=== PATIENT | female | born 1990 | race Caucasian/White ===

== ENCOUNTER 2020-07-21 15:58 | Outpatient (REF) | payer MEDICAID, SELFPAY | END 2020-07-21 15:59 | disposition home or self-care (01) | LOC: HO.LAB 15:58 | PROVIDERS: Visit Provider Internal Medicine | DX: Z20.828 Contact with and (suspected) exposure to other viral communicable diseases (principal) | CPT/HCPCS: C9803; U0003 ==

== ENCOUNTER 2020-08-09 10:52 | Outpatient (REF) | payer MEDICAID, SELFPAY | END 2020-08-09 10:53 | disposition home or self-care (01) | LOC: HO.LAB 10:52 | PROVIDERS: Visit Provider Internal Medicine | DX: Z20.822 Contact with and (suspected) exposure to COVID-19 (principal) | CPT/HCPCS: 36415; C9803; U0003 ==

== ENCOUNTER 2022-08-11 07:47 | Outpatient (REF) | payer MEDICAID, SELFPAY ==
--- NOTE | ~2022-08-11 | MM_ITS ---
EXAMINATION: MM DIAGNOSTIC DIGITAL BREAST TOMOSYNTHESIS, LEFT US BREAST TARGETED, LEFT CLINICAL INFORMATION: Skin tag The lifetime risk of breast cancer based on the Tyrer-Cuzick Model is 7.8%. COMPARISON: Mammography: None TECHNIQUE: Digital breast tomosynthesis is performed in both the craniocaudal and mediolateral oblique views along with computer-aided detection (CAD). Synthesized 2D images are generated from the tomosynthesis. Additional left craniocaudal and mediolateral oblique views performed. Targeted left breast ultrasound. FINDINGS: There are scattered areas of fibroglandular density (ACR BI-RADS breast composition Category b). About the upper outer aspect of the left breast, there is a density likely representing superimposition of fibroglandular tissue but which persists to some degree on spot compression views. No other abnormal dominant mass or suspicious grouping of microcalcifications is identified. Recommend 6 month follow-up left breast mammography to ensure stability. Targeted left breast ultrasound to the upper outer aspect did not demonstrate any abnormal cystic or solid mass. No region of abnormal distal sound shadowing was identified. No edematous change within the parenchyma is seen Targeted ultrasound to the areolar was performed for question skin tag. About the nipple, there is a 3 mm exophytic structure from the epidermis. There is a small vascular pedicle present. Results are discussed with the patient at time of visit. MM/MM tomosynthesis diagnostic BI IMPRESSION: 1. Left breast density upper outer aspect for which 6 month follow-up study is recommended. 2. Left nipple skin tag as described. ASSESSMENT: BI-RADS 3: Probably Benign RECOMMENDATION: Diagnostic mammography in 6 months. This patient's information was entered into a reminder system with a target due date for their next mammogram.
== END 2022-08-11 07:48 | disposition home or self-care (01) ==
LOC: HO.MAMMO 07:47
PROVIDERS: Visit Provider Advanced Practice Midwife
DX: Q83.9 Congenital malformation of breast, unspecified (principal)
CPT/HCPCS: 76642; 77062; 77066

== ENCOUNTER 2022-10-20 12:00 | Outpatient (RCR) | payer MEDICAID, SELFPAY | END 2022-10-25 11:29 | disposition home or self-care (01) | LOC: HO.PT 12:00 | PROVIDERS: PCP Nurse Practitioner; Visit Provider Advanced Practice Midwife | DX: N62 Hypertrophy of breast (principal) | CPT/HCPCS: 97110; 97112; 97161; 97530 ==

== ENCOUNTER 2023-04-14 09:51 | Emergency (ER) | payer SELFPAY ==
--- NOTE | ~2023-04-14 | XR_ITS ---
EXAMINATION: XR WRIST, RIGHT XR HAND, RIGHT CLINICAL INFORMATION: Pain COMPARISON: None available. TECHNIQUE: Frontal lateral oblique right hand and navicular view wrist. Total 4 views. FINDINGS: RIGHT WRIST: The bones and soft tissues are normal. No fracture. Alignment is anatomic. Joint spaces are maintained. No erosions or soft tissue calcifications. RIGHT HAND: The bones and soft tissues are normal. No fracture. Alignment is anatomic. Joint spaces are maintained. No erosions or soft tissue calcifications. XR/XR hand wrist RT IMPRESSION: Normal right hand and wrist.
[2023-04-14 09:59] VITALS: BP 141/84; PULSE 86; RESP 18; TEMP 36.5; O2SAT 97; BMI 32.8
--- NOTE | 2023-04-14 10:49 | ED_ITS ---
HPI - URI/Sore Throat General Chief Complaint: Upper Respiratory Symptoms Stated Complaint: R hand pain/ not feeling well Time Seen by Provider: 04/14/23 10:18 Source: patient, RN notes reviewed and old records reviewed Mode of arrival: ambulatory History of Present Illness HPI Narrative: 33-year-old female with no significant past medical history presenting to the ED complaining of right hand/wrist pain, with intermittent swelling and paresthesias x few weeks. Also reports nasal congestion, dry cough, mild headache and subjective fever x couple days. Admits co-worker tested positive for COVID-19 recently. Admits to doing lot of things with her hands, denies weakness, neck/back pain, nausea/vomiting, CP/SOB MD elicited complaint: rhinorrhea and nasal congestion Related Data Allergies Allergy/AdvReac Type Severity Reaction Status Date / Time No Known Allergies Allergy Verified 04/14/23 10:03 Review of Systems Review of Systems: Constitutional: +subj Fever, No Chills ENT/Mouth: No Ear Pain, + Nasal Congestion, No Sinus Pain, No Hoarseness, No so re throat, + Rhinorrhea, No Swallowing Difficulty Cardiovascular: No Chest Pain, No SOB Respiratory: + Cough, No Sputum, No Wheezing Gastrointestinal: No Nausea, No Vomiting, No Diarrhea, No Constipation, No Abdominal pain Genitourinary: No Dysuria, No Urinary Frequency, No Hematuria, No Urinary Incontinence/retention, No Urgency, No Flank Pain Musculoskeletal: + joint pain, No Myalgias, + Joint Swelling Skin: No Skin Lesions, No rash Neuro: No Weakness, No Numbness, + Paresthesias, +FORD Yes all other systems are reviewed and are negative Constitutional: Constitutional: Reports as per [facility] Past Medical History Attestation statement: The following information was validated with the patient. Source: old records reviewed Social History Social History Alcohol intake: current Alcohol intake frequency: a few times a month Smoked in Last 30 Days: No Substance Use Type: Marijuana Advance Directives: No Advance Directives Information Provided: No Physical Exam Vital Signs: Vital Signs: Last Vital Signs Temp 97.7 F 04/14/23 09:59 Pulse 86 04/14/23 09:59 Resp 18 04/14/23 09:59 BP 141/84 H 04/14/23 09:59 Pulse Ox 97 09/23/23 09:59 O2 Del Method Room Air 04/14/23 09:59 BMI result Body Mass Index 32.8 Const: General: cooperative, healthy appearing and no acute distress Orientation/consciousness: patient oriented x3 Limitations: no limitations HEENT: Head: Yes normal to inspection and Yes atraumatic Ears: hearing grossly normal bilaterally, external ears normal, TM's normal bilaterally and mastoids normal General nose exam: Normal external nose present and Nasal discharge present Face and sinus: Yes normal facial exam Throat: Yes posterior oropharynx normal, Yes tonsils normal, Yes uvula midline, No peritonsillar mass, No uvula laterally displaced and No uvular edema Eyes: General: appearance normal, both eyes and all related structures EOM: EOMs intact bilaterally Neck: Neck: Yes normal visual inspection and Yes no meningeal signs Resp: Effort & Inspection: normal respiratory effort, no respiratory distress and no stridor Auscultation: clear to auscultation bilaterally Cardio: Rate: regular rate Heart sounds: S1 normal heart sound present and S2 normal heart sound present Skin: Rashes: no rashes Wounds: no wounds Neuro: General: patient oriented x3, gait normal, tone normal, moves all extremities, no meningeal signs, no focal motor deficits and CN's II-XI intact bilaterally Cranial nerves: Yes CN's II-XII intact bilaterally and Yes Bilaterally intact EOM present Cognition (Neuro): normal cognition Gait exam (Neuro): Normal gait present Extrem: Other: No appreciable right wrist/hand swelling or deformity. No erythema/warmth. + mild tenderness palpation to right wrist volar aspect with positive Tinel's and Phalen sign. neurovascular intact General: Yes normal to inspection Course Course Course Narrative: -COVID-19 POSITIVE. INFLUENZA NEGATIVE XR hand wrist RT IMPRESSION: Normal right hand and wrist. Results discussed with patient including worrisome signs and symptoms and strict return precautions, and when to return to the emergency department. They verbalized understanding and feel safe for discharge at this time. Medical Decision Making Medical Decision Making [facility] Narrative: 33-year-old female with no significant past medical history presenting to the ED complaining of right hand/wrist pain, with intermittent swelling and paresthesias x few weeks. Also reports nasal congestion, dry cough, mild headache and subjective fever x couple days. On exam vital signs stable, NAD, nontoxic appearing, physical exam as above, lungs CTA, or pharynx WNL, nasal congestion noted. Right wrist with mild tenderness. No appreciable swelling. Positive Tinel's and Phalen sign. Concern for viral syndrome and carpal tunnel. Low suspicion for pneumonia/ACS/PE or pharyngitis. Unlikely fracture/septic joint/arthritis or gout or cervical dissection not plan: X-rays, viral testing Please refer to course for remaining clinical decision making, interpretation of labs/imaging results, and discussions with consultants and/or family members. Differential Diagnosis Differential Diagnoses: The differential diagnosis associated with the presentation includes As above Lab Data MDM Lab Attestation statement: I reviewed the patient's lab results. Labs: Lab Results 04/14/23 Range/Units 10:52 COVID-19 (SAL) Positive A (Negative) COVID-19 Clin Com See Note Influenza Type A (MACK) Negative (Negative) Influenza Type B (MACK) Negative (Negative) Influenza A & B Note See Note Radiology Impression Discussion of test interpretation with radiology: I have reviewed the radiologist's reading. External Record Review External record reviewed: Inpatient record, Office record, Outpatient record, Prior outpatient labs, Prior outpatient radiology, Primary care record and Outside ED record Tests considered The following testing was considered but not selected: As above Discharge Plan Discharge Clinical Impression: COVID-19, Acute carpal tunnel syndrome Patient Disposition: Home, Self-Care Instructions: Carpal Tunnel Surgery (DC), COVID-19 (Coronavirus Disease 2019) (ED) Additional Instructions: YOU HAVE COVID-19 At this time you will be okay for discharge. Please self isolate for 5 days. Do not expose yourself to others. You may not go to work or school. Please continue to follow cold instructions and wash your hands frequently. You may take Tylenol / Motrin as directed on the bottle for pain or fever. If you have constant or persistent shortness of breath, fever unresolved with medications, chest pain, or your unable to eat or drink please return to the ED CDC Guidelines for home isolation: - Stay away from others - WEAR A MASK if you are sick AND STAY HOME - Cover your mouth and nose with a tissue when you cough or sneeze. Dispose of tissues in a lined trash can and wash your hands immediately with soap and water for at least 20 seconds. If soap and water are not available, clean hands with alcohol-based hand home energy inspector that contains at least 60% alcohol. - Clean your hands often with soap and water for at least 20 seconds - Avoid touching your eyes, nose and mouth with unwashed hands - Do not share dishes, drinking glasses, cups, eating utensils, towels, or bedding with other people in your home. After using these items, wash them thoroughly with soap and water or put in the corporate representative. - Clean high-touch surfaces in your isolation area ( sick room and bathroom) every day; let a caregiver clean and disinfect high-touch surfaces in other areas of the home. Clean the area or item with soap and water or another detergent if it is dirty. Then, use a household disinfectant. - Limit contact with pets and animals: If you must care for a pet, wash your hands before and after interacting with them) YOUR X-RAYS UNREMARKABLE. HE LIKELY OF CARPAL TUNNEL WEAR WRIST SPLINTS ESPECIALLY AT NIGHT FOLLOW-UP WITH ORTHOPEDIC HAND. TAKE TYLENOL AND MOTRIN Referrals: [facility] [Provider Group] - 1 week Luci Costa MD [Primary Care Provider] - 3 days Stand Alone Forms: Work/School Release Interventions: ED Discharge Assessment Last Done: 04/14/23 13:09 Discharge Date/Time: 04/14/23 13:09
[2023-04-14 11:06] LABS: COVID-19 Test Positive (Negative); IDNOW Serial# 08D9AD1C
[2023-04-14 11:16] LABS: IDNOW Serial# BCCEAD1C; Influenza A Negative (Negative); Influenza B2 Negative (Negative)
--- NOTE | 2023-04-14 12:54 | PC.NURSE ---
pt in room w/door closed - precautions for covid-19. aox4. cough, airway intact. +CMS. talking well. no pain
--- NOTE | 2023-04-14 13:00 | PC.NURSE ---
aox4. ortho wrist application applied. skin c/d/i- no redness- reports no changes in tingling since REPORTER. otherwise +CMS. given paperwork and education. talking w/o distress. denies pain
== END 2023-04-14 13:09 | disposition home or self-care (01) ==
PROVIDERS: Physician Assistant; Emergency Provider Emergency Medicine Emergency Medical Services; PCP Internal Medicine
DX: U07.1 COVID-19 (principal); G56.01 Carpal tunnel syndrome, right upper limb
CPT/HCPCS: 73110; 73130; 87502; 87635; 99283; 99284

== ENCOUNTER 2023-07-08 13:07 | Emergency (ER) | payer SELFPAY ==
--- NOTE | ~2023-07-08 | XR_ITS ---
EXAMINATION: XR CHEST CLINICAL INFORMATION: Cough. Right posterior chest pain COMPARISON: None available. TECHNIQUE: Frontal view of the chest was obtained. FINDINGS: No significant abnormality is noted involving the heart, lungs, mediastinum, bony thorax or soft tissues. XR/XR chest 1V IMPRESSION: Unremarkable chest examination.
[2023-07-08 13:19] VITALS: BP 123/77; PULSE 81; RESP 18; TEMP 36.1; O2SAT 98; BMI 32.6
[2023-07-08 14:17] LABS: Influenza A PCR NEGATIVE (Negative); Influenza B PCR NEGATIVE (Negative); Resp Syncy Virus RNA Qual PCR POSITIVE (Negative); SARS COV2 PCR INHOUSE NEGATIVE (Negative)
--- NOTE | 2023-07-08 16:28 | ED_ITS ---
HPI - URI/Sore Throat General Chief Complaint: Upper Respiratory Symptoms Stated Complaint: Cough/Headache/SOB Time Seen by Provider: 07/08/23 16:28 Source: patient Mode of arrival: ambulatory Limitations: no limitations History of Present Illness HPI Narrative: 33 year old female with no significant pmhx presents to the ED today with a complaint of cough, body aches, headache x2 days. Cough is nonproductive of sputum. Has not been taking anything at home for this. No known sick contacts. Denies fever, chills, sore throat, neck pain, chest pain, shortness of breath, nausea or vomiting, abdominal pain, diarrhea or constipation. Related Data Previous Rx's Medication Instructions Recorded benzonatate 100 mg capsule 100 mg PO BID PRN cough #14 caps 07/08/23 Allergies Allergy/AdvReac Type Severity Reaction Status Date / Time No Known Allergies Allergy Verified 07/08/23 13:19 Review of Systems Review of Systems: Constitutional: No fever, chills, fatigue, night sweats, weight changes ENT/Mouth: No ear pain, hearing loss, +nasal congestion, No sinus pain, rhinorrhea, sore throat Eyes: No eye pain, swelling, redness, vision changes, discharge Cardio: No chest pain, palpitations, DAY, orthopnea, peripheral edema Pulm: No SOB, +cough, No sputum, wheezing, dyspnea, hemoptysis GI: No nausea, vomiting, hematemesis, abdominal pain, diarrhea, constipation, hematochezia, melena : No irregular bleeding, dysuria, frequency, urgency, hesitancy, hematuria, flank pain, urinary flow changes, urinary incontinence or retention MSK: No back pain, neck pain, joint pain, myalgias Skin: No lesions, rashes Neuro: No weakness, numbness, paresthesias, LOC, dizziness, + headache All other systems reviewed and are negative. [facility] Past Medical History Attestation statement: The following information was validated with the patient. Source: old records reviewed and nursing notes reviewed Social History Social History Alcohol intake: current Alcohol intake frequency: a few times a month Substance Use Type: Marijuana Advance Directives: No Advance Directives Information Provided: No Physical Exam Vital Signs: Vital Signs: Last Vital Signs Temp 97.0 F 07/08/23 13:19 Pulse 81 07/08/23 13:19 Resp 18 07/08/23 13:19 BP 123/77 07/08/23 13:19 Pulse Ox 98 07/08/23 13:19 O2 Del Method Room Air 07/08/23 13:19 BMI result Body Mass Index 32.6 Vital signs stable, afebrile. Const: General: cooperative, healthy appearing, comfortable, no acute distress, alert and awake Orientation/consciousness: patient oriented x3 Limitations: no limitations HEENT: Other: + posterior oropharynx without erythema or edema, no tonsillar exudates, uvula midline, no peritonsillar masses, speaking complete sentences and controlling secretions. Head: Yes normal to inspection Ears: hearing grossly normal bilaterally, external ears normal, TM's normal bilaterally, EAC's normal, mastoids normal and no periauricular adenopathy General nose exam: Normal external nose present, Normal nares present and No nasal discharge present Face and sinus: Yes normal facial exam and Yes sinuses nontender Eyes: General: appearance normal, both eyes and all related structures Conjunctivae: conjunctivae normal Pupils: Equal, round and reactive pupils present EOM: EOMs intact bilaterally Neck: Neck: Yes normal visual inspection, Yes full ROM, Yes no lymphadenopathy and Yes no meningeal signs Resp: Effort & Inspection: normal respiratory effort, Actively coughing, no respiratory distress and no use of accessory muscles Auscultation: clear to auscultation bilaterally and no wheezes Cardio: Rate: regular rate Rhythm: regular rhythm Peripheral pulses: radial pulses present GI: Inspection: Yes normal to inspection Palpation (GI): Soft to palpation, nontender, no guarding and no splenomegaly Back/Spine/Pelvis: Other: No midline spinous tenderness. No paraspinal muscle tenderness. No step off deformity. Skin: General skin exam: no rashes or lesions noted Neuro: Other: Strength 5/5 intact throughout.? No saddle anesthesia.? Sensation intact to light touch.? Neurovascular intact distally.? General: patient oriented x3, gait normal, moves all extremities and no meningeal signs Cranial nerves: Yes Equal, round and reactive pupils present Extrem: General: Yes normal to inspection and Yes full ROM Course Course Course Narrative: 1631-- patient tested positive for RSV. Chest x-ray unremarkable. Discussed results with patient. Educated her on symptomatic treatment. Will send Earl Vickers to pharmacy for cough. Patient has remained stable throughout ED visit today. Discussed strict return precautions. All questions answered at this time. Patient is agreeable with disposition and stable for discharge. Medical Decision Making Medical Decision Making [facility] Narrative: 33 year old female with no significant pmhx presents to the ED today with a complaint of cough, body aches, headache x2 days. Vital signs stable, afebrile. Patient nontoxic appearing in no acute distress. Bilaterally EACs and TMs WNL. Posterior oropharynx without erythema or edema, uvula midline, no tonsillar exudates or peritonsillar masses, controlling secretions and speaking complete sentences. No cervical lymphadenopathy. No rashes. Lungs clear to auscultation bilaterally. No wheezing. Clinical concern for viral syndrome, strep throat, bronchitis, pneumonia. Unlikely pleural effusion, pulmonary embolism, SPECIAL EVENTS DRIVER, retropharyngeal abscess, epiglottitis, otitis media or externa, mastoiditis, malignant otitis externa. Plan for serology and chest x-ray. Differential Diagnosis Differential Diagnoses: The differential diagnosis associated with the presentation includes As above. Admission/Observation Not indicated. Lab Data [facility] Lab Attestation statement: I reviewed the patient's lab results. As above. Labs: Lab Results 07/08/23 Range/Units 13:24 Influenza Type A (PCR) NEGATIVE (Negative) Influenza Type B (PCR) NEGATIVE (Negative) RSV RNA Qual (PCR) POSITIVE A (Negative) SARS-CoV-2 RNA (RT-PCR) NEGATIVE (Negative) Independent Interpretation I performed an independent interpretation of an: Plain X-Ray Interpretation: Chest x-ray without consolidation or infiltrate, agree with radiologist's interpretation. Radiology Impression Discussion of test interpretation with radiology: I have reviewed the radiologist's reading. Radiologist Impression: XR chest 1V IMPRESSION: Unremarkable chest examination. External Record Review External record reviewed: Inpatient record Prescription Management I considered prescription management with: Other (Antitussive) Critical Care Time Critical Care Time Critical Care Time: No Discharge Plan Discharge Clinical Impression: Respiratory syncytial virus (RSV) Patient Disposition: Home, Self-Care Instructions: Viral Syndrome (ED) Additional Instructions: You tested positive for RSV today. RSV is contagious. Your chest x-ray was normal. Treatment for this is symptomatic. Tessalon Perles have been sent to your pharmacy. Take these as needed for cough. You may take Tylenol and ibuprofen as needed for body aches or fevers. Get lots of rest and make sure you stay hydrated. Follow-up with your primary care provider as needed. If symptoms persist or worsen please return to the emergency department. The case of an emergency call 911. Prescriptions: New benzonatate 100 mg capsule 100 mg PO BID PRN (Reason: cough) Qty: 14 0RF Stand Alone Forms: Work/School Release
[2023-07-08 16:48] VITALS: PULSE 83; RESP 18; O2SAT 98
== END 2023-07-08 16:49 | disposition home or self-care (01) ==
PROVIDERS: Emergency Provider Emergency Medicine; PCP Internal Medicine
DX: R05.9 Cough, unspecified (principal); B97.4 Respiratory syncytial virus as the cause of diseases classified elsewhere; R07.89 Other chest pain; R51.9 Headache, unspecified; Z20.822 Contact with and (suspected) exposure to COVID-19
CPT/HCPCS: 0241U; 71045; 99283

== ENCOUNTER 2024-08-13 11:51 | Emergency (ER) | payer MEDICAID, SELFPAY ==
--- NOTE | ~2024-08-13 | XR_ITS ---
CLINICAL HISTORY: shoulder pain 3 view right shoulder Comparison: CR - SHOULDER RIGHT [id number] - 08/25/16 08:51 EST Findings: No fractures or dislocations. No significant arthritic change. No erosions. No radiopaque foreign body. IMPRESSION: 1. No acute findings This document has been electronically signed by: Genna Rachel MD on 08/13/2024 18:08:32
--- NOTE | ~2024-08-13 | XR_ITS ---
CLINICAL HISTORY: right sided chest pain 2 view chest x-ray Comparison: CR/SR - XR CHEST 1V - 07/08/23 13:32 EST Findings: Normal size heart. No consolidation, pleural effusion or pneumothorax. No acute fracture. IMPRESSION: 1. No acute findings. This document has been electronically signed by: Genna Rachel MD on 08/13/2024 18:08:41
[2024-08-13 11:58] VITALS: BP 150/84; PULSE 73; RESP 18; TEMP 36.7; O2SAT 99; BMI 32.5
--- NOTE | 2024-08-13 12:00 | ED_ITS ---
HPI - General Adult General Chief complaint: Extremity Injury, Upper Stated complaint: R shoulder/side pain Time Seen by Provider: 08/13/24 17:07 Related Data Previous Rx's ?Medication ?Instructions ?Recorded benzonatate 100 mg capsule 100 mg PO BID PRN cough #14 caps 07/08/23 ibuprofen 400 mg tablet 400 mg PO Q6H PRN pain #20 tabs 08/13/24 Allergies Allergy/AdvReac Type Severity Reaction Status Date / Time No Known Allergies Allergy Verified 08/13/24 12:00 [facility] Social History Social History Alcohol intake: never Smoked in Last 30 Days: Yes Use of substances other than those prescribed or required for medical reasons: Yes Substance Use Type: Marijuana Advance Directives: No Advance Directives Information Provided: No Do you have a plan to hurt others: No Plan Physical Exam ED Vital Signs: Vital Signs - 24 hr 08/13/24 11:58 08/13/24 17:25 Temperature 98.0 F 99 F Pulse Rate 73 71 Respiratory Rate 18 18 Blood Pressure 150/84 H 131/78 Pulse Oximetry 99 99 Oxygen Delivery Method Room Air Room Air BMI result Body Mass Index 32.5 Course Course Course Narrative: This is a rapid medical exam performed by Addi Gloria NP: Additional HPI, ROS, PE not included below will be deferred to primary provider. Patient is a 34-year-old female presenting with complaint of right shoudler and right sided chest pain. Worse with deep inspiration. Has implanon implant. Plan: labs, EKG Medications Administered Discontinued Medications Generic Name Dose Route Start Last Admin Trade Name Freq PRN Reason Stop Dose Admin Ketorolac Tromethamine 15 mg 08/13/24 17:39 08/13/24 18:25 Ketorolac Tromethamine 15 Mg/Ml Vial IVPUSH 08/13/24 17:40 15 mg ONCE ONE Administration Medical Decision Making Lab Data 08/13/24 12:28 08/13/24 12:28 Labs: Lab Results 08/13/24 Range/Units 12:28 WBC 6.6 (4.8-10.8) X10*3/uL RBC 4.73 (4.20-5.50) X10*6/uL Hgb 14.0 (12.0-16.0) g/dl Hct 40.7 (37.0-47.0) % MCV 86.0 (80.0-98.0) fL MCH 29.6 (27.0-33.0) pg MCHC 34.4 (31.0-35.0) g/dl RDW 12.8 (11.0-16.0) % Plt Count 254 (160-400) X10*3/uL MPV 9.9 (9.4-12.3) fL Immature Gran % (Auto) 0.3 (0.0-0.4) % Neut % (Auto) 51.7 (45-73) % Lymph % (Auto) 39.2 (20-40) % Coal % (Auto) 6.8 (2-11) % Eos % (Auto) 1.4 (0-4) % Baso % (Auto) 0.6 (0-2) % Lymph # (Auto) 2.6 (1.2-4.9) X10*3/uL Coal # (Auto) 0.5 (0.1-1.2) X10*3/uL Eos # (Auto) 0.1 (0.0-0.4) X10*3/uL Baso # (Auto) 0.0 (0.0-0.2) X10*3/uL Abs Immat Gran (auto) 0.02 (0.00-0.03) X10*3/uL Absolute Neuts (auto) 3.4 (2.0-8.3) x10*3/uL Absolute Nucleated RBC 0.000 (0.0-0.012) X10*3/uL Nucleated RBC % (auto) 0.0 (0.0-0.2) /100WBC PT 11.4 (10.9-12.4) SEC INR 1.0 (0.9-1.1) D-Dimer High Sensitivty 179 NG/ML Sodium 139 (135-145) mmol/L Potassium 3.5 (3.3-5.1) mmol/L Chloride 109 H (96-108) mmol/L Carbon Dioxide 24 (22-29) mmol/L Anion Gap 10 L (12-20) BUN 6 L (9-16) mg/dL Creatinine 0.63 (0.5-1.4) mg/dL Estim Creat Clear Calc 112.1 Estimated GFR > 60 Random Glucose 84 (60-115) mg/dL Calcium 9.5 (8.4-10.2) mg/dL Total Bilirubin 0.5 (0.0-1.0) mg/dL AST 25 (5-31) U/L ALT 20 (0-31) U/L Alkaline Phosphatase 77 (39-117) U/L Troponin I High Sens < 2.7 (<3.5-17.0) ng/L Total Protein 7.8 (6.5-8.0) g/dL Albumin 4.5 (3.5-5.0) g/dL Beta HCG, Quant < 2 mIU/mL Discharge Plan Discharge Clinical Impression: Shoulder sprain Patient Disposition: Home, Self-Care Instructions: Shoulder Sprain (ED) Prescriptions: New ibuprofen 400 mg tablet 400 mg PO Q6H PRN (Reason: pain) Qty: 20 0RF No Action benzonatate 100 mg capsule 100 mg PO BID PRN (Reason: cough) Qty: 14 0RF Referrals: Sarthak Braun MD [Physician] - 08/20/24 Print Language: Gibraltarian
--- NOTE | 2024-08-13 12:01 | ECG_ITS ---
Test Reason : CHEST RUSS RIGHT Blood Pressure : */* mmHG Vent. Rate : 73 BPM Atrial Rate : 73 BPM P-R Int : 162 ms QRS Dur : 86 ms QT Int : 406 ms P-R-T Axes : 43 17 13 degrees QTcB Int : 447 ms Normal sinus rhythm Normal ECG No previous ECGs available Referred By: Mihaela Gloria Electronically Signed By: JAZMIN VALDOVINOS MD
[2024-08-13 12:32] LABS: MANUAL DIFF FLAG NO
[2024-08-13 12:37] LABS: Basophils Percent Auto 0.6 % (0-2); Eosinophils Absolute Auto 0.1 X10*3/uL (0.0-0.4); Eosinophils Percent Auto 1.4 % (0-4); Hematocrit 40.7 % (37.0-47.0); Imm Gran Abs Auto 0.02 X10*3/uL (0.00-0.03); Imm Gran Pct Auto 0.3 % (0.0-0.4); Lymphocytes Absolute Auto 2.6 X10*3/uL (1.2-4.9); Lymphocytes Percent Auto 39.2 % (20-40); Mean Corpuscular HGB Conc 34.4 g/dl (31.0-35.0); Mean Corpuscular Hemoglobin 29.6 pg (27.0-33.0); Mean Platelet Volume 9.9 fL (9.4-12.3); Monocytes Absolute Auto 0.5 X10*3/uL (0.1-1.2); Monocytes Percent Auto 6.8 % (2-11); Neutrophils Absolute Auto 3.4 x10*3/uL (2.0-8.3); Neutrophils Percent Auto 51.7 % (45-73); Platelet Count 254 X10*3/uL (160-400); Red Blood Count 4.73 X10*6/uL (4.20-5.50); Red Cell Distribution Width 12.8 % (11.0-16.0); White Blood Count 6.6 X10*3/uL (4.8-10.8)
[2024-08-13 12:40] LABS: Prothrombin Time 11.4 SEC (10.9-12.4)
[2024-08-13 12:55] LABS: Alanine Aminotransferase 20 U/L (0-31); Albumin Level 4.5 g/dL (3.5-5.0); Alkaline Phosphatase 77 U/L (39-117); Anion Gap 10 (12-20); Aspartate Amino Transferase 25 U/L (5-31); Bilirubin Total 0.5 mg/dL (0.0-1.0); Blood Urea Nitrogen 6 mg/dL (9-16); Calcium 9.5 mg/dL (8.4-10.2); Carbon Dioxide 24 mmol/L (22-29); Chloride 109 mmol/L (96-108); Creatinine Clr Calc Pharmacy 112.1; Estimated Glomerular Filt Rate > 60; Glucose Random 84 mg/dL (60-115); HCG Quantitative < 2 mIU/mL; Potassium 3.5 mmol/L (3.3-5.1); Sodium 139 mmol/L (135-145); Total Protein 7.8 g/dL (6.5-8.0); Troponin-I High Sensitivity < 2.7 ng/L (<3.5-17.0)
[2024-08-13 17:25] VITALS: BP 131/78; PULSE 71; RESP 18; TEMP 37.2; O2SAT 99
--- NOTE | 2024-08-13 17:40 | ED_ITS ---
HPI - Extremity Problem General Chief complaint: Extremity Injury, Upper Stated complaint: R shoulder/side pain Time Seen by Provider: 08/13/24 17:07 History of Present Illness HPI Narrative: patient is a 34-year-old female presents today with having right arm pain right rib pain. The pain is worse with deep breath. Worse with movement of the shoulder. Has a history of carpal tunnel to the right hand. Patient denies any fever chills. There is no diaphoresis. There is no history of diabetes, hypertension, high cholesterol, smoking, mi. No history of blood clots. No leg swelling. No rash noted per patient. 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 Related Data Previous Rx's ?Medication ?Instructions ?Recorded benzonatate 100 mg capsule 100 mg PO BID PRN cough #14 caps 07/08/23 ibuprofen 400 mg tablet 400 mg PO Q6H PRN pain #20 tabs 08/13/24 Allergies Allergy/AdvReac Type Severity Reaction Status Date / Time No Known Allergies Allergy Verified 08/13/24 12:00 Review of Systems 2 Review of Systems: positive right-sided chest pain positive right shoulder pain PMFSH Past Medical History Attestation statement: The following information was validated with the patient. Social History Social History Alcohol intake: never Smoked in Last 30 Days: Yes Use of substances other than those prescribed or required for medical reasons: Yes Substance Use Type: Marijuana Advance Directives: No Advance Directives Information Provided: No Do you have a plan to hurt others: No Plan Physical Exam 2 Vital Signs: Vital Signs: Last Vital Signs Temp 99 F 08/13/24 17:25 Pulse 71 08/13/24 17:25 Resp 18 08/13/24 17:25 BP 131/78 08/13/24 17:25 Pulse Ox 99 08/13/24 17:25 O2 Del Method Room Air 08/13/24 17:25 BMI result Body Mass Index 32.5 Appearance: Alert. Oriented X3. No acute distress. Eyes: Pupils equal, round and reactive to light. ENT: Pharynx normal. Neck: Normal inspection. Neck supple. No lymph nodes noted. No crepitus CVS: Normal heart rate and rhythm. Pulses normal. Normal S1 and S2 Respiratory: No respiratory distress. Breath sounds normal. No Wheezing. No rales Abdomen: Soft and nontender. No rigidity. No distention. good BS x4 Skin: Skin warm and dry. Normal skin color. Normal skin turgor. Extremities: Examination of the right shoulder showed good range of motion. There is pain on abduction greater than 90 degrees. There is good sensation over radial median ulnar and axillary nerves. There is no skin rash noted. There is good capillary refill distally. Good movement of the hand. Neuro: Oriented X 3. No motor deficit. No sensory deficit. Moving all extermities. No slurred speech Medications Administered Discontinued Medications Generic Name Dose Route Start Last Admin Trade Name Freq PRN Reason Stop Dose Admin Ketorolac Tromethamine 15 mg 08/13/24 17:39 08/13/24 18:25 Ketorolac Tromethamine 15 Mg/Ml Vial IVPUSH 08/13/24 17:40 15 mg ONCE ONE Administration Medical Decision Making Medical Decision Making MDM Narrative: My interpretation of patient's EKG showed a sinus rhythm heart rate is 75 CT QRS QTC normal no acute ST segment elevation noted. Patient's D-dimer is negative. In the setting of low risk unlikely to have PE. Her pain is atypical for ACS. Her troponin is less than 2.7. My interpretation of her EKG showed a sinus rhythm heart rate is 70 CT QRS QTC normal no acute ST segment elevation noted. Her chest x-ray by my interpretation showed no evidence of pneumonia no pneumothorax. Her heart score is less than 3 in the setting of being 34 years old no significant cardiac risk atypical pain negative enzyme. Will discharge patient home. Shoulder x-ray also negative for any acute evidence of fracture no dislocation. Differential Diagnosis Differential Diagnoses: The differential diagnosis associated with the presentation includes PE, ACS, musculoskeletal sprain. Admission/Observation Consideration of admission/observation: Escalation of care including admission/observation considered Lab Data MDM Lab Attestation statement: I reviewed the patient's lab results. 08/13/24 12:28 08/13/24 12:28 Labs: Lab Results 08/13/24 Range/Units 12:28 WBC 6.6 (4.8-10.8) X10*3/uL RBC 4.73 (4.20-5.50) X10*6/uL Hgb 14.0 (12.0-16.0) g/dl Hct 40.7 (37.0-47.0) % MCV 86.0 (80.0-98.0) fL MCH 29.6 (27.0-33.0) pg MCHC 34.4 (31.0-35.0) g/dl RDW 12.8 (11.0-16.0) % Plt Count 254 (160-400) X10*3/uL MPV 9.9 (9.4-12.3) fL Immature Gran % (Auto) 0.3 (0.0-0.4) % Neut % (Auto) 51.7 (45-73) % Lymph % (Auto) 39.2 (20-40) % Clare % (Auto) 6.8 (2-11) % Eos % (Auto) 1.4 (0-4) % Baso % (Auto) 0.6 (0-2) % Lymph # (Auto) 2.6 (1.2-4.9) X10*3/uL Clare # (Auto) 0.5 (0.1-1.2) X10*3/uL Eos # (Auto) 0.1 (0.0-0.4) X10*3/uL Baso # (Auto) 0.0 (0.0-0.2) X10*3/uL Abs Immat Gran (auto) 0.02 (0.00-0.03) X10*3/uL Absolute Neuts (auto) 3.4 (2.0-8.3) x10*3/uL Absolute Nucleated RBC 0.000 (0.0-0.012) X10*3/uL Nucleated RBC % (auto) 0.0 (0.0-0.2) /100WBC PT 11.4 (10.9-12.4) SEC INR 1.0 (0.9-1.1) D-Dimer High Sensitivty 179 NG/ML Sodium 139 (135-145) mmol/L Potassium 3.5 (3.3-5.1) mmol/L Chloride 109 H (96-108) mmol/L Carbon Dioxide 24 (22-29) mmol/L Anion Gap 10 L (12-20) BUN 6 L (9-16) mg/dL Creatinine 0.63 (0.5-1.4) mg/dL Estim Creat Clear Calc 112.1 Estimated GFR > 60 Random Glucose 84 (60-115) mg/dL Calcium 9.5 (8.4-10.2) mg/dL Total Bilirubin 0.5 (0.0-1.0) mg/dL AST 25 (5-31) U/L ALT 20 (0-31) U/L Alkaline Phosphatase 77 (39-117) U/L Troponin I High Sens < 2.7 (<3.5-17.0) ng/L Total Protein 7.8 (6.5-8.0) g/dL Albumin 4.5 (3.5-5.0) g/dL Beta HCG, Quant < 2 mIU/mL Independent Interpretation I performed an independent interpretation of an: EKG and Plain X-Ray ( X-ray of the chest x-ray of the shoulder) Radiology Impression Discussion of test interpretation with radiology: I have reviewed the radiologist's reading. Discharge Plan Discharge Clinical Impression: Shoulder sprain Patient Disposition: Home, Self-Care Instructions: Shoulder Sprain (ED) Prescriptions: New ibuprofen 400 mg tablet 400 mg PO Q6H PRN (Reason: pain) Qty: 20 0RF No Action benzonatate 100 mg capsule 100 mg PO BID PRN (Reason: cough) Qty: 14 0RF Referrals: Sarthak Braun MD [Physician] - 08/20/24 Print Language: Armenian
[2024-08-13 17:48] LABS: D Dimer High Sensitivity 179 NG/ML
[2024-08-13] MEDS: Ketorolac Tromethamine 15 MG/ML VIAL IVPUSH (18:25)
--- OUTSIDE RECORDS SUMMARY | 2024-08-13 18:30 | XMS_ITS | Encounter Summary ---
Author Organization [employer] Address [address] [facility] [address] [place] [address] Care Team Providers Care Parts Department Supervisor Name Role Phone Luci Costa MD Primary Care Provider + Encounter Details Date Type Department Care Team (Latest Contact Info) Description 01/27/2022 Abstract [facility] CONVERSIONS Dental, Provider, DDS Social History Tobacco Use Types Packs/Day Years Used Date Smoking Tobacco: Never Assessed Comments Unknown Sex and Gender Information Value Date Recorded Sex Assigned at Female 05/22/2022 10:17 AM EDT Legal Sex Female 10:17 AM EDT Gender Identity Female 05/22/2022 10:17 AM EDT Sexual Orientation Straight 05/22/2022 10 :17 AM EDT documented as of this encounter Plan of Treatment Not on file documented as of this encounter Visit Diagnoses Not on filedocumented in this encounter Care Teams Parts Department Supervisor Relationship Specialty Start Date End Date Luci Costa MD [address] [place] [id number] PCP - General Family Medicine 03/09/17 documented as of this encounter
--- OUTSIDE RECORDS SUMMARY | 2024-08-13 18:30 | XMS_ITS | Clinical Summary ---
Author Organization [facility] Address [address] [place] [address] Phone Care Team Providers Care Paving Contractor Name Role Phone Unavailable Primary Care Provider Unavailabl e Immunizations Name Administration Dates Next Due DTP 06/21/1999, 9,04/21/1993,05/22/19,02/19/1990 Hep B, ped/adol 07/22/1999,07/22/1997,09/19/1996 Hib (HbOC) 02/19/1990 IPV 05/22/1999, 9,04/21/1993,06/21/19 91,02/19/1990 MMR 05/22/1999,09/19/1996 Td (adult) (MBL), 2 Lf tetan us toxoid, PF, adsorbed 07/04/2001 Social History Tobacco Use Types Packs/Day Years Used Date Smoking Tobacco: Never Assessed Comments Unknown Sex and Gender Information Value Date Recorded Sex Assigned at Not on file Legal Sex Female 4:12 PM EDT Gender Identity Not on file Sexual Orientation Not on file Plan of Treatment Health Maintenance Due Date Last Done Comments Varicella Vaccines (1 of 2 - 13+ 2-dose series) 01/19/2001 DTaP,Tdap,and Td Vaccines (7 - Tdap) 07/04/2011 07/04/2001, 06/21/1999, 12/20/1998, Additional history exists Influenza Vaccines (#1) 2024 COVID-19 Vaccine ( season) 2024 HIB Vaccines Completed 02/19/1990 IPV Vaccines Completed 05/22/1999, 05/3 07/1998, 04/21/1993, Additional history exists MMR Vaccines Completed 05/22/1999, 09/19/1996 Hepatitis B Vaccines Completed 07/22/1999, 07/22/1997, 09/19/1996 HPV Vaccines Aged Out No longer eligi ble based on patient's age to complete this topic Hepatitis A Vaccines Aged Out No long er eligible based on patient's age to complete this topic Men B Vaccine Aged Out No longer elig ible based on patient's age to complete this topic Meningococcal Vaccine Aged Out No sigifredo maggie eligible based on patient's age to complete this topic Pneumococcal Vaccine Aged Out No long er eligible based on patient's age to complete this topic
--- OUTSIDE RECORDS SUMMARY | 2024-08-13 18:30 | XMS_ITS | Encounter Summary ---
Author Organization [employer] Address [address] [facility] [address] [place] [address] Care Team Providers Care Wirer Maintenance Name Role Phone Luci Costa MD Primary Care Provider + Encounter Details Date Type Department Care Team (Late st Contact Info) Description 09/04/2022 Telephone [facility] [address] [place] [address] [phone] Luci Costa MD [address] [place] [address] [phone] Social History Tobacco Use Types Packs/Day Years Used Date Smoking Tobacco: Some Days Cigarettes Started: 08/13/2013 Smokeless Tobacco: Never Alcohol Use Standard Drinks/Week Comments Yes 0 (1 standard drink = 0.6 oz pur e alcohol) Comments No Sex and Gender Information Value Date Recorded Sex Assigned at Female 05/22/2022 10:17 AM EDT Legal Sex Female 10:17 AM EDT Gender Identity Female 05/22/2022 10:17 AM EDT Sexual Orientation Straight 05/22/2022 10 :17 AM EDT 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 No / Unsure 08/24/2022 9:06 AM EST documented as of this encounter Plan of Treatment Not on file documented as of this encounter Visit Diagnoses Not on filedocumented in this encounter Care Teams Wirer Maintenance Relationship Specialty Start Date End Date Luci Costa MD [address] [place] [address] [phone] PCP - General Family Medicine 8/18/17 documented as of this encounter
--- OUTSIDE RECORDS SUMMARY | 2024-08-13 18:30 | XMS_ITS | Clinical Summary ---
Author Organization [facility] Address [address] [place] [address] Care Team Providers Care Glove Maker Name Role Phone Unavailable Primary Care Provider Unavailabl e Medical History Medical History Date Comments Anxiety state DX:Anxiety state History of vitamin D deficiency 06/06/2016 DX:History of vitamin D deficiency; COMMENT: Vitamin D = 15 Bacterial vaginosis 06/06/2016 DX:Bacterial vaginosis; COMMENT: 01/18/16, 10/12/14, 03/31/11, 02/03/10 Vaginal yeast infection 06/06/2016 DX:Vagin al yeast infection; COMMENT: 02/03/10 ASCUS of cervix with negativ e high risk HPV 02/28/2013 DX:ASCUS of cervix with nega tive high risk HPV History of colposcopy 11/25/2012 DX:History of colposcopy; COMMENT: chronic cervicitis with squamous metaplasia and 03/31/11 JENIFER 1 History of chlamydia 2005 DX:History of chlamydia History of anemia 07/18/2011 DX:History of anemia; COMMENT: H & H 8.6 / 26.7 ASCUS with positive high ris k HPV cervical 03/02/2011 DX:ASCUS with positive high risk HPV cervical Family History Medical History Relation Name Comments Other: Down syndrome Brother Diabetes Father Diabetes Mother Hypertension Mother Diabetes Paternal Grandmother Relation Name Status Comments Brother Father Mother Paternal Grandmother Social History Tobacco Use Types Packs/Day Years Used Date Smoking Tobacco: Light Smoker Smokeless Tobacco: Never Alcohol Use Standard Drinks/Week Comments Yes 0 (1 standard drink = 0.6 oz pur e alcohol) Sex and Gender Information Value Date Recorded Sex Assigned at Not on file Gender Identity Not on file Sexual Orientation Not on file Obstetrics History Plan of Treatment Health Maintenance Due Date Last Done Comments Pneumococcal Vaccine: Pediat rics (0 to 5 Years) and At-Risk Patients (6 to 64 Years) (1 of 2 - PCV) 01/19/1994 Hepatitis A Vaccines (1 of 2 - Risk 2-dose series) 01/19/2007 Hepatitis B Vaccines (1 of 3 - 19+ 3-dose series) 01/19/2007 Cervical Cancer Screening: P ap Smear 01/19/2009 HPV Vaccines (2 - 3-dose series) 12/23/2012 11/26/19 13 Depression Screening 06/25/2022 HIV Screening 06/25/2022 Hepatitis C Screening 06/25/2022 Social Influencers of Health Screening 06/25/2022 COVID-19 Vaccine (1 - 2023-2 5 season) 2024 Influenza Vaccine (#1) 2024 05/03/2017 DTaP,Tdap,and Td Vaccines (2 - Td or Tdap) 03/09/2027 03/09/2017 HIB Vaccines Aged Out No longer eligi ble based on patient's age to complete this topic IPV Vaccines Aged Out No longer eligi ble based on patient's age to complete this topic MMR Vaccines Aged Out No longer eligi ble based on patient's age to complete this topic Meningococcal ACWY Vaccine Aged Out N o longer eligible based on patient's age to complete this topic RSV Immunization Patients Un eric 20 months Aged Out No longer eligible b ased on patient's age to complete this topic Varicella Vaccines Aged Out No longer eligible based on patient's age to complete this topic
--- OUTSIDE RECORDS SUMMARY | 2024-08-13 18:30 | XMS_ITS | Encounter Summary ---
Author Organization [employer] Address [address] [facility] [address] [place] [address] Care Team Providers Care Plastic Joint Maker Name Role Phone Luci Costa MD Primary Care Provider + Reason for Visit * Reason Onset Date Comments Nurse Triage 08/13/2024 Encounter Details Date Type Department Care Team (Late st Contact Info) Description 08/13/2024 Telephone [facility] [address] [place] [address] Luci Costa MD [address] [place] [address] Nurse Triage Social History Tobacco Use Types Packs/Day Years Used Date Smoking Tobacco: Some Days Cigarettes Started: 08/13/2013 Smokeless Tobacco: Never Alcohol Use Standard Drinks/Week Comments Yes 0 (1 standard drink = 0.6 oz pur e alcohol) ocassionally Housing Stability Answer Date Recorded What is your housing situation today? I have madykhloe sow 08/08/[address] you li ve. Do you have problems with any of the following? Pests such as bugs, ants, or mice 08/08/2023 Food Insecurity Answer Date Recorded Within the past 12 months, y ou worried that your food would run out before you got money to buy more: Never True 05/16/2023 Within the past 12 months,th e food you bought just didn't last and you didn't have enough money to get more: Never True Transportation Answer Date Recorded In the past 12 months, has l ack of transportation kept you from medical appts, meetings, work or from getting things needed for daily living? No 05/16/2023 Utilities Answer Date Recorded In the past 12 months, has t he electric, gas, oil or water company threatened to shut off services in your home? 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 Pt is advised to call after seen in ED for follow up apt. Also call [facility] to update insurance information. Pt agrees. Protocol Used: No Contact or Duplicate Contact Call (Adult) Protocol-Based Disposition: No Contact Call Positive Triage Question: * Patient already left for the hospital/clinic * All higher-acuity triage questions were negative * Telephone Encounter - Jewel Aguialr - 08/13/2024 11:28 AM EST Symptom: Arm Pain - Not From Injury Outcome: Schedule an urgent appointment (within 1 hour) or talk to a nurse or provider soon Reason: Severe pain now The caller accepted this outcome. documented in this encounter Plan of Treatment Not on file documented as of this encounter Visit Diagnoses Not on filedocumented in this encounter Care Teams Plastic Joint Maker Relationship Specialty Start Date End Date Luci Costa MD [address] [place] [phone] PCP - General Family Medicine 03/09/17 documented as of this encounter
--- OUTSIDE RECORDS SUMMARY | 2024-08-13 18:30 | XMS_ITS | Encounter Summary ---
Author Organization [facility] Address [address] [place] [address] Phone Care Team Providers Care Ranch Manager Name Role Phone Unavailable Primary Care Provider Unavailabl e Encounter Details Date Type Department Care Team ([facility] st Contact Info) Description 03/08/2017 Conversion Encounter [facility] [address] [place] [address] Social History Tobacco Use Types Packs/Day Years Used Date Smoking Tobacco: Never Assessed Comments Unknown Sex and Gender Information Value Date Recorded Sex Assigned at Not on file Legal Sex Female 4:12 PM EDT Gender Identity Not on file Sexual Orientation Not on file documented as of this encounter Plan of Treatment Not on file documented as of this encounter Visit Diagnoses Not on filedocumented in this encounter
--- OUTSIDE RECORDS SUMMARY | 2024-08-13 18:30 | XMS_ITS | Clinical Summary ---
Author Organization [employer] Address [address] [facility] [address] [place] [address] Care Team Providers Care Executive Account Manager Name Role Phone Luci Costa MD Primary Care Provider + Allergies No known active allergies Medications etonogestrel-eluti ng (Nexplanon) 68 mg contraceptive implant Active naproxen (Naprosyn) 500 MG tablet Take 1 tablet by mouth every 12 (twelve) hours. 7 Active amoxicillin (Amoxil) 500 MG capsule Take 500 mg by mouth every 8 (eight) hours. 2 Active chlorhexidine (Peridex) 0.12 % solution SWISH 15 ML'S IN MOUTH FOR 30 SECONDS THEN SPIT OUT TWICE A DAY AFTER MEALS 2 Active ibuprofen 800 MG tablet TAKE 1 TABLET BY MOUTH THREE TIMES A DAY WITH FOOD 2 Active permethrin (Elimite) 5 % cream apply from neck to toes. leave for 8-14hrs before washing off. Repeat in 1 week 8 Active Acetaminophen 500 MG capsule Take 1 capsule (500 mg) by mouth every 8 (eight) hours. 30 capsule 1 4 Active guaiFENesin (Robitussin) 100 MG/5ML liquid Take 10 mL by mouth every 4 (four) hours. 120 mL 1 4 Active Active Problems Problem Noted Date Diagnosed Date Skin tag, acquired 10/19/2022 Upper back pain, chronic 09/18/2022 Assessment & Plan (09/18/2022 11:48 AM EST): Pt to complete PT Will send for evaluation for breast reduction surgery apparently by PT recomendation. Continue weight reduction and take Tylenol PRN. Pure hypercholesterolemia 09/18/2022 Assessment & Plan (09/18/2022 11:49 AM EST): We discussed re rx options. She wants to be more strict with life style modifications. Recommended moderate amount of exercise and increased consumption of fruit, vegetables, fish and high fiber foods. We discussed about avoiding consumption of highly saturated fats or trans fats. FU lipids in one year I gave her information for lifestyle modifications Synovial cyst of left wrist 09/18/2022 Assessment & Plan (09/18/2022 11:50 AM EST): Not present at this time, wrist is mildly tender Counseled to use wrist brace for ADLs and work. I sent information to my chart regarding hand exercsies. Reconsult PRN persistent pain or functional limitation of the hand. Bilateral carpal tunnel syndrome 09/18/2022 Assessment & Plan (09/18/2022 11:50 AM EST): Recommended use of wrist braces for work and overnight. I sent information to my chart for CTS exercises. Consider OT if symptoms persist. FU with me in 6 months. Large breasts 09/18/2022 Assessment & Plan (09/18/2022 11:51 AM EST): s/p PT due to back pain. Recommended to use proper bra and support. Refer to plastic surgery. Preventative health care 08/14/2022 Assessment & Plan (08/14/2022 10:34 AM EST): -Will order IZ titers and TB. -Agreed to Tdap and 1st Covid IZ today, declined Influenza IZ. -Pap smear is scheduled for next month -Mammogram 08/11/22 showed BIRADS 3, up to date -We discussed about protective intercourse, she will FU with [facility] for Nexplanon withdrawal/replacement. Complex sclerosing lesion of left breast 023 Assessment & Plan (08/14/2022 10:35 AM EST): -Mammogram done 08/11/22. -FU Mammogram January 2023. Low back pain at multiple sites 08/14/2022 Assessment & Plan (08/14/2022 10:36 AM EST): -Counseled to continue PT. -Counseled regarding weight reduction and increased exercise. -Counseled to come to [facility] acupuncture clinic. Generalized anxiety disorder 08/14/2022 Assessment & Plan (08/14/2022 10:37 AM EST): Patient off psychotherapy at this time. -Counseled to cut down on use of THC, will FU at next visit. -Pt feels safe at home and is able to reach out for safety. Viral warts 08/14/2022 Assessment & Plan (08/14/2022 11:23 AM EST): On left nipple, pt wants it removed. -Abdias schedule an appointment with Dr. Alonzo for removal. -FU at next visit At risk for diabetes mellitus 08/14/2022 Decreased vision in both eyes 08/14/2022 Encounters Date Type Department Care Team Description 08/13/2024 Telephone [facility] [address] [place] [phone] Luci Costa MD Nurse Triage from Last 3 Months Immunizations Name Administration Dates Next Due DTP 06/21/1999, 9,04/21/1993,1990,02/19/1990 HPV, Quadrivalent 11/25/2012 Hep B, Adolescent or Pediatric 07/22/1999,1996,09/19/1996 Hib ([facility]) 02/19/1990 IPV 05/22/1999, 9,04/21/1993,1990,02/19/1990 MMR 05/22/1999,09/19/1996 Moderna Covid-19 Vaccine 12+ 08/14/2022 TD (adult), 2 Lf tetanus tox oid, preservative free, adsorbed 07/04/2001 Tdap 08/14/2022,03/09/2017 Family History Medical History Relation Name Comments Dementia Father Diabetes Father Diabetes type II Mother Heart disease Mother Relation Name Status Comments Father Mother Social History Tobacco Use Types Packs/Day Years Used Date Smoking Tobacco: Some Days Cigarettes Started: 08/13/2013 Smokeless Tobacco: Never Tobacco Cessation:Ready to Q uit: Not Asked; Counseling Given: Not Answered Alcohol Use Standard Drinks/Week Comments Yes 0 (1 standard drink = 0.6 oz pur e alcohol) ocassionally Housing Stability Answer Date Recorded What is your housing situation today? I have mady sow 08/08/[address] you [...] Industry Job Start Date Job End Date [employer] Not on file Not on file Not on file Last Filed Vital Signs Vital Sign Reading Time Taken Comments Blood Pressure 117/69 10/18/2022 4:06 PM EDT Pulse 72 10/18/2022 4:06 PM EDT Temperature 36.4 ??C (97.5 ??F) 10/18/2022 4:06 PM ED T Respiratory Rate 20 10/18/2022 4:06 PM EDT Oxygen Saturation 98% 10/18/2022 4:06 PM EDT Inhaled Oxygen Concentration - - Weight 71.3 kg (157 lb 4 oz) 10/18/2022 4:06 PM EDT Height 152.4 cm (5') 10/18/2022 4:06 PM EDT Body Mass Index 30.71 10/18/2022 4:06 PM EDT Plan of Treatment Health Maintenance Due Date Last Done Comments Depression Screening 1988 HIV Screening 1988 Pneumococcal Vaccine: Pediatrics (0 to 5 Years) and At-Risk Patients (6 to 64 Years) (1 of 2 - PCV) 01/19/1994 Alcohol/Substance Use Screening 2000 Family Planning (PISQ) 01/19/2003 Hepatitis C Screening 01/19/2006 HPV Vaccines (2 - 3-dose series) 12/23/2012 11/25/2012 Mammogram 02/08/2023 Tobacco Screening 10/19/2023 10/18/2022 COVID-19 Vaccine (2 - season) 2024 08/14/2022 Influenza Vaccine (#1) 2024 SDOH Screening 08/08/2024 08/08/2023 Pap Smear 08/24/2025 08/24/2022 Cervical Cancer Screening 08/24/2027 HPV/Cotest 08/24/2027 08/24/2022 DTaP/Tdap/Td Vaccines (9 - Td or Tdap) 08/14/2032 08/14/2022, 03/09/2017, 07/04/2001, Additional history exists Zoster Vaccines (1 of 2) 01/19/2038 RSV Patients and Patients Aged 60 years or older (1 - 1-dose 75+ series) 01/19/2063 HIB Vaccines Completed 02/19/1990 IPV Vaccines Completed 05/22/1999, 11/22, 04/21/1993, Additional history exists Hepatitis B Vaccines Completed 07/22/1999, 07/22/1997, 09/19/1996 Hepatitis A Vaccines Aged Out No long er eligible based on patient's age to complete this topic Meningococcal Vaccine Aged Out No sigifredo maggie eligible based on patient's age to complete this topic RSV under 20 months Aged Out No longe r eligible based on patient's age to complete this topic Rotavirus Vaccines Aged Out No longer eligible based on patient's age to complete this topic Procedures Procedure Name Priority Date/Time Associated Diagnosis Comments IMAGE-GUIDED PAP W/AGE BASED SCR,W/CT/NG/TRICH Routine 08/24/2022 9:26 AM EST Cervical cancer screening Encntr screen for infections w sexl mode of transmiss from Last 3 Months or Most Recently Relevant to Health Maintenance Results * Image-Guided Pap with Age-Based Screening??with CT/NG,??Trichomonas (08/24/2022 9:26 AM EST) Comment [facility] Comment: This order for age-based cervical cancer and STI screening follows ACOG guidelines(PB 168, 140, BPW416). See individual assays for performing site location. Clinical Information: ROUTINE SCREEN [facility] LMP: NONE GIVEN [facility] Prev. PAP: NONE GIVEN [facility] Prev. BX: NONE GIVEN [facility] SOURCE: None given [facility] Statement Of Adequacy: [facility] Comment: Satisfactory for evaluation. Endocervical/transformation zone component present. Interpretation/Re sult: Negative for intraepithelial lesion or malignancy. [facility] COMMENT: This Pap test has been evaluated with computer assisted technology. [facility] Conventional Machinist: Qu Cyntellectt Comment: SID, CT(ASCP) CT screening location: [address] ??[id number] Review Conventional Machinist: [facility] Comment: DCR, CT(ASCP) CT screening location: [address] ??[phone] (Always Message) Que st Musations Comment: EXPLANATORY NOTE: The Pap is a screening test for cervical cancer. It is not a diagnostic test and is subject to false negative and false positive results. It is most reliable when a satisfactory sample, regularly obtained, is submitted with relevant clinical findings and history, and when the Pap result is evaluated along with historic and current clinical information. HPV nRNA E6/E7 Not Detected Not Detected [facility] Comment: Methodology: Financial Services Manager-Mediated Amplification This assay detects E6/E7 viral messenger RNA (mRNA) from 14 high-risk HPV types (16,18,31,33,35,39,45,51,52,56,58,59,66,68). Cervical sources are required for HPV testing. If a vaginal source from a patient who has had a total hysterectomy with removal of cervix was submitted, please contact the testing laboratory for alternative testing options. For additional information, please refer to http://Netlist.Canary Calendar/faq/TNR626i5 (This link if provided for information/ educational purposes only.) Chlamydia trachomatis RNA, TMA, Urogenital NOT DETECTED NOT DETECTED [facility] Neisseria gonorrhoeae RNA, TMA, Urogenital NOT DETECTED NOT DETECTED [facility] (Always Message) Que st [facility] Pley Comment: The analytical performance characteristics of this assay, when used to test SurePath(TM) specimens have been determined by [facility]. The modifications have not been cleared or approved by the FDA. This assay has been validated pursuant to the CLIA regulations and is used for clinical purposes. For additional information, please refer to https://Hyperfair/faq/LCH390 (This link is being provided for information/ educational purposes only.) Trichomonas vaginalis, QL, TMA, PAP Vial NOT DETECTED NOT DETECTED [facility] Comment: The analytical performance characteristics of this assay have been determined by [facility]. The modifications have not been cleared or approved by the FDA. This assay has been validated pursuant to the CLIA regulations and is used for clinical purposes. For additional information, please refer to http://Hyperfair/ faq/Trichomonastma (This link is being provided for information/ educational purposes only.) Vaginal Fluid 08/24/2022 9:2 6 AM EST 08/25/2022 8:20 AM EST us [facility]TOLOGY ORDERABLES F inal Result [facility] [address] [facility], [place] [address] [facility] [address] [facility], ([address]) [place] [address] from Last 3 Months or Most Recently Relevant to Health Maintenance Care Teams Executive Account Manager Relationship Specialty Start Date End Date Luci Costa MD [address] [place] [id number] PCP - General Family Medicine 03/09/17
[2024-08-13 21:32] VITALS: BP 131/78; PULSE 71; RESP 18; TEMP 37.2; O2SAT 99
== END 2024-08-13 21:32 | disposition home or self-care (01) ==
PROVIDERS: Emergency Provider Emergency Medicine Emergency Medical Services; Referring Provider Registered Nurse Emergency
DX: S43.401A Unspecified sprain of right shoulder joint, initial encounter (principal); R07.81 Pleurodynia; R07.89 Other chest pain; X50.0XXA Overexertion from strenuous movement or load, initial encounter; X50.9XXA Other and unspecified overexertion or strenuous movements or postures, initial encounter; Y93.9 Activity, unspecified; Y92.9 Unspecified place or not applicable; Y99.0 Civilian activity done for income or pay; Z79.899 Other long term (current) drug therapy
CPT/HCPCS: 36415; 71046; 73030; 80053; 84484; 84702; 85025; 85379; 85610; 93005; 96374; 99284; 99285; J1885

== ENCOUNTER → 2024-08-13 12:01 | Outpatient (BNV) | payer MEDICAID, SELFPAY | PROVIDERS: Visit Provider Internal Medicine Cardiovascular Disease | DX: R07.9 Chest pain, unspecified (principal) | CPT/HCPCS: 93010 ==

== ENCOUNTER → 2024-08-13 17:37 | Outpatient (BNV) | payer SELFPAY | PROVIDERS: Emergency Provider Emergency Medicine Emergency Medical Services; Visit Provider Specialist | DX: R07.9 Chest pain, unspecified (principal); M25.511 Pain in right shoulder | CPT/HCPCS: 71046; 73030 ==

== ENCOUNTER 2025-01-19 09:41 | Outpatient (REF) | payer MEDICAID, SELFPAY ==
--- OUTSIDE RECORDS SUMMARY | 2025-01-19 10:06 | XMS_ITS | Clinical Summary ---
Author Organization [facility] Address [address] [place] [address] Phone Care Team Providers Care Media Intern Name Role Phone Unavailable Primary Care Provider Unavailabl e Immunizations Immunization Administration Dates Next Due DTP 06/21/1999, 9,04/21/1993,1990,02/19/1990 Hep B, ped/adol 07/22/1999,07/22/1997,09/19/1996 Hib ([facility]) 02/19/1990 IPV 05/22/1999, 9,04/21/1993,1990,02/19/1990 MMR 05/22/1999,09/19/1996 Td (adult) (MBL), 2 Lf [...] Vaccines Completed 02/19/1990 IPV Vaccines Completed 05/22/1999, 05/07/1998, 04/21/1993, Additional history exists MMR Vaccines Completed [...]
[2025-01-19 11:48] LABS: Anion Gap 8 (12-20); Blood Urea Nitrogen 6 mg/dL (9-16); Carbon Dioxide 29 mmol/L (22-29); Chloride 109 mmol/L (96-108); Cholesterol 162 mg/dL (<200); Estimated Glomerular Filt Rate > 60; Glucose Random 96 mg/dL (60-115); HDL Cholesterol 39 mg/dL (>40); LDL Cholesterol Calculated 103 mg/dL (<100); Potassium 3.9 mmol/L (3.3-5.1); Sodium 142 mmol/L (135-145); Triglycerides 104 mg/dL (<150)
[2025-01-19 12:03] LABS: Syphilis Screen Nonreactive (Nonreactive)
[2025-01-19 12:06] LABS: HBc Num1 0.09 S/CO (0.00-0.79); HBsAGNum1 0.62 S/CO (0.00-0.99); HIV AB/AG Nonreactive (Nonreactive); HIV Num 1 0.06 S/CO (0.00-0.99); Hepatitis A Antibody IgM 0.17 Index (0-0.79); Hepatitis B Core Antibody Nonreactive (Nonreactive); Hepatitis B Surface Antigen Negative (Negative); ~HepC Num1 0.12 S/CO (0.00-0.79); ~Hepatitis A Antibody IgM Nonreactive (Nonreactive); ~Hepatitis B Surface Antibody REACTIVE (Nonreactive); ~Hepatitis C Antibody Nonreactive (Nonreactive)
[2025-01-19 12:11] LABS: TSH reflex Free T4 0.93 uIU/mL (0.32-4.0)
[2025-01-19 13:42] LABS: Reflex LDLD? No
[2025-01-19 15:37] LABS: Bacterial Vaginosis PCR POSITIVE (Negative); Candida Group PCR NOT DETECTED (Not Detect); Candida glab krusei PCR NOT DETECTED (Not Detect); Trichomonas vaginalis PCR NOT DETECTED (Not Detect)
[2025-01-19 21:46] LABS: CT PCR NOT DETECTED (Not Detect.); NG PCR NOT DETECTED (Not Detect.)
== END 2025-01-19 09:42 | disposition home or self-care (01) ==
LOC: HO.HHCL 09:41
PROVIDERS: PCP Internal Medicine; Visit Provider Internal Medicine
DX: Z11.4 Encounter for screening for human immunodeficiency virus [HIV] (principal); N89.8 Other specified noninflammatory disorders of vagina; E78.00 Pure hypercholesterolemia, unspecified; F41.1 Generalized anxiety disorder
CPT/HCPCS: 80048; 80061; 81515; 84443; 86704; 86706; 86709; 86780; 86803; 87340; 87389; 87491; 87591

== ENCOUNTER 2025-02-16 10:31 | Outpatient (REF) | payer MEDICAID, SELFPAY ==
--- NOTE | ~2025-02-16 | MM_ITS ---
EXAMINATION: MM SCREENING DIGITAL BREAST TOMOSYNTHESIS, BILATERAL CLINICAL INFORMATION: Screening. Asymptomatic. Was a BI-RADS 3 2022 did not have follow-up imaging. COMPARISON: Mammography: Comparison is made with available priors TECHNIQUE: Digital breast mammography with tomosynthesis is performed in both the craniocaudal and mediolateral oblique views along with computer-aided detection (CAD). FINDINGS: There are scattered areas of fibroglandular density (ACR BI-RADS breast composition Category b). Previously seen focal asymmetry in the superior left breast on MLO view upper outer breast without prior sonographic correlate is not seen on today's imaging only normal fibroglandular breast tissue is seen. There are no significant masses, abnormal calcifications, or other abnormalities. MM/MM tomosynthesis screening BI IMPRESSION: No mammographic evidence of malignancy. ASSESSMENT: BI-RADS BI-RADS 1 - Negative RECOMMENDATION: Routine annual mammography screening. 1 year F/U This examination should not preclude the clinical evaluation of a suspicious palpable abnormality. This patient's information was entered into a reminder system with a target due date for their next mammogram. Electronically signed by: Annamarie Jacob DO 02/24/2025 04:09 PM EDT
--- OUTSIDE RECORDS SUMMARY | 2025-02-16 11:41 | XMS_ITS | Clinical Summary ---
Author Organization [facility] Address [address] [address] Phone Care Team Providers Care Production Planning Supervisor Name Role Phone Center, [facility] Primary Care Provider Unavailable Allergies No known active allergies Medications etonogestreL (NEXPLANON) 68 mg Impl Active Active Problems Problem Noted Date Diagnosed Date Macromastia 11/07/2022 Upper back pain 11/07/2022 Neck pain 11/07/2022 Intertrigo 11/07/2022 Family History Medical History Relation Comments Diabetes Father Diabetes Mother Relation Status Comments Father Alive Mother Alive Social History Tobacco Use Types Packs/Day Years Used Date Smoking Tobacco: Every Day Cigarettes Smokeless Tobacco: Never Tobacco Cessation:Ready to Q uit: Not Asked; Counseling Given: Not Answered Alcohol Use Standard Drinks/Week Comments Yes 0 (1 standard drink = 0.6 oz pur e alcohol) Education Answer Date Recorded Are you interested in more education? Not on fara e 11/18/2022 Are you concerned about learning? Not on file 11/18/2022 No 11/18/2022 No 11/18/2022 Digital Access Answer Date Recorded No 12/17/2022 No 12/17/2022 No 12/17/2022 Reliable internet access at home? Not on file 12/17/2022 Device with a working camera? Not on file Comments Unknown Sex and Gender Information Value Date Recorded Sex Assigned at Not on file Legal Sex Female 9:59 AM EST Gender Identity Not on file Sexual Orientation Not on file Last Filed Vital Signs Vital Sign Reading Time Taken Comments Blood Pressure 118/83 11/07/2022 10:07 AM EDT Pulse 80 11/07/2022 10:07 AM EDT Temperature - - Respiratory Rate - - Oxygen Saturation - - Inhaled Oxygen Concentration - - Weight 69.6 kg (153 lb 6.4 oz) 11/07/2022 10:07 AM EDT Height 156.2 cm (5' 1.5 ) 11/07/2022 10:07 AM ED T Body Mass Index 28.52 11/07/2022 10:07 AM EDT Plan of Treatment Health Maintenance Due Date Last Done Comments DEPRESSION SCREENING 2000 SMOKING Hx and SMOKELESS TOBACCO SCREENING 01/19/2001 HEPATITIS C SCREENING 01/19/2006 HIV ONE-TIME SCREENING (18-6 5 YEARS) 01/19/2006 PNEUMOCOCCAL VACCINES (0-49 years) (1 of 2 - PCV) 01/19/2007 PAP SMEAR 01/19/2009 SCREENING FOR DIABETES 01/19/2023 COVID-19 VACCINE (2 - 2023-2 5 season) 2024 08/14/2022 Adult Td,Tdap Booster 08/14/2032 08/14/2022 , 03/09/2017, 07/04/2001 HIB VACCINES Completed 02/19/1990 HEPATITIS A VACCINES Aged Out No long er eligible based on patient's age to complete this topic MENINGOCOCCAL VACCINES (ACWY) Aged Out No longer eligible based on patient's age to complete this topic MENINGOCOCCAL VACCINES (B) Aged Out N o longer eligible based on patient's age to complete this topic Medical Devices Not on file Care Teams Production Planning Supervisor Relationship Specialty Start Date End Date Trisha Austin MD PCP - General 09/26/22 Additional Source Comments The information contained in this document represents components of the legal health record. It is not the complete legal health record.[facility]
--- OUTSIDE RECORDS SUMMARY | 2025-02-16 11:42 | XMS_ITS | Clinical Summary ---
Author Organization [facility] Address [address] [place] [phone] Phone Care Team Providers Care Commercial Attorney Name Role Phone Physician, No Pcp Primary Care Provider Unavaila ble Allergies No known active allergies Medications No known medications Medical History Medical History Date Comments Anxiety [...] Types Packs/Day Years Used Date Smoking Tobacco: Former Cigarettes Smokeless Tobacco: Never Tobacco Cessation:Counseling Given: Not Answered Alcohol Use Standard Drinks/Week Comments Yes 0 (1 standard drink = 0.6 oz pur e alcohol) Comments No Sex and Gender Information Value Date Recorded Sex Assigned at Female 10/27/2024 7:06 PM EDT Legal Sex Female 6:16 AM EST Gender Identity Female 10/27/2024 7:06 PM EDT Sexual Orientation Straight 10/27/2024 7: 06 PM EDT Obstetrics History Last Filed Vital Signs Vital Sign Reading Time Taken Comments Blood Pressure 138/106 10/27/2024 4:52 PM EDT Pulse 80 10/27/2024 4:52 PM EDT Temperature 36.7 C (98.1 F) 10/27/2024 4:52 PM EDT Respiratory Rate 20 10/27/2024 4:52 PM EDT Oxygen Saturation 100% 10/27/2024 4:52 PM EDT Inhaled Oxygen Concentration - - Weight 72.6 kg (160 lb) 10/27/2024 6:10 PM EDT Height 152.4 cm (5') 10/27/2024 4:52 PM EDT Body Mass Index 31.25 10/27/2024 4:52 PM EDT Plan of Treatment Health Maintenance Due Date Last Done Comments Hepatitis A Vaccines (1 of 2 - Risk 2-dose series) 01/19/2007 Cervical Cancer Screening: Pap Smear 01/19/2009 HPV Vaccines (2 - 3-dose series) 12/23/2012 11/25/2012 Cholesterol Screening (Lipid Panel) 06/25/2022 HIV Screening 06/25/2022 Hepatitis C Screening 06/25/2022 Social Influencers of Health Screening 06/25/2022 COVID-19 Vaccine ( season) 2024 08/14/2022 Depression Screening 07/23/2024 Influenza Vaccine (#1) 2025 05/03/2017 DTaP,Tdap,and Td Vaccines (9 - Td or Tdap) 08/14/2032 08/14/2022, 03/09/2017, 07/04/2001, Additional history exists HIB Vaccines Completed 02/19/1990 IPV Vaccines Completed 05/22/1999, 05/3 07/1998, 04/21/1993, Additional history exists MMR Vaccines Completed 05/22/1999, 09/19/1996 Hepatitis B Vaccines Completed 07/22/1999, 07/22/1997, 09/19/1996 Meningococcal ACWY Vaccine Aged Out N o longer eligible based on patient's age to complete this topic Meningococcal B Vaccine Aged Out No l onger eligible based on patient's age to complete this topic Pneumococcal Vaccine: Pediatrics (0 to 5 Years) and At-Risk Patients (6 to 49 Years) Aged Out No longer eligible based on patient's age to complete this topic RSV Immunization Patients Under 20 months Aged Out No longer eligible based on patient's age to complete this topic Varicella Vaccines Aged Out No longer eligible based on patient's age to complete this topic Insurance GENERIC WC GENERIC Care Teams Commercial Attorney Relationship Specialty Start Date End Date Physician, No Pcp PCP - General 10/30/24
[2025-02-19 11:08] LABS: TS Negative Control Passed; TS Panel A 0; TS Panel B 0; TS Positive Control Passed; TSpotTB Negative (Negative)
== END 2025-02-16 10:32 | disposition home or self-care (01) ==
LOC: HO.MAMMO 10:31
PROVIDERS: PCP Internal Medicine; Visit Provider Internal Medicine
DX: Z12.31 Encounter for screening mammogram for malignant neoplasm of breast (principal); Z11.1 Encounter for screening for respiratory tuberculosis
CPT/HCPCS: 36415; 77063; 77067; 86481

== ENCOUNTER → 2025-02-16 15:15 | Outpatient (BNV) | payer MEDICAID, SELFPAY | PROVIDERS: PCP Internal Medicine; Visit Provider Internal Medicine | DX: Z12.31 Encounter for screening mammogram for malignant neoplasm of breast (principal) | CPT/HCPCS: 77063; 77067 ==

== ENCOUNTER 2025-03-12 16:15 | Outpatient (REF) | payer MEDICAID, SELFPAY ==
--- NOTE | ~2025-03-12 | XR_ITS ---
EXAMINATION: XR KNEE, RIGHT CLINICAL INFORMATION: acute R knee pain and decreased ROM COMPARISON: None available. TECHNIQUE: Four views of the right knee. FINDINGS: No fracture or joint effusion. Alignment is anatomic. Joint spaces are maintained. No abnormal soft tissue calcification. XR/XR knee RT 4V IMPRESSION: Unremarkable right knee. Electronically signed by: Geremias Quiroga MD 03/12/2025 04:31 PM EDT
--- OUTSIDE RECORDS SUMMARY | 2025-03-12 16:17 | XMS_ITS | Clinical Summary ---
Author Organization [facility] Address [address] [address] Phone Care Team Providers Care Robotics Mechanic Name Role Phone Center, Gallinamarie Keys MD Primary Care Provider Unavailable Allergies No known [...] Medical Devices Not on file Care Teams Robotics Mechanic Relationship Specialty Start Date End Date Trisha Austin MD PCP - General 09/26/22 Additional Source Comments The information contained in this document represents components of the legal health record. It is not the complete legal health record.[facility]
--- OUTSIDE RECORDS SUMMARY | 2025-03-12 16:17 | XMS_ITS | Clinical Summary ---
Author Organization [facility] Address [address] [place] [phone] Phone Care Team Providers Care Grounds Person Name Role Phone Physician, No Pcp Primary [...] topic Insurance GENERIC WC GENERIC Care Teams Grounds Person Relationship Specialty Start Date End Date Physician, No Pcp PCP - General 10/30/24
== END 2025-03-12 16:16 | disposition home or self-care (01) ==
LOC: HO.HHCX 16:15
PROVIDERS: Visit Provider Family Medicine
DX: M25.561 Pain in right knee (principal)
CPT/HCPCS: 73564

== ENCOUNTER → 2025-03-12 16:15 | Outpatient (BNV) | payer MEDICAID, SELFPAY | PROVIDERS: Visit Provider Radiology Diagnostic Radiology | DX: M25.561 Pain in right knee (principal) | CPT/HCPCS: 73564 ==

== ENCOUNTER 2025-06-05 14:38 | Emergency (ER) | payer MEDICAID, SELFPAY ==
[2025-06-05 15:45] VITALS: BP 111/64; PULSE 79; RESP 18; TEMP 36.7; O2SAT 99; BMI 31.3
--- NOTE | 2025-06-05 15:45 | ED.GENADULT ---
HPI - General Adult General Chief complaint: Animal Bite Stated complaint: Animal Bite Time Seen by Provider: 06/05/25 18:21 Source: patient Mode of arrival: ambulatory Limitations: no limitations History of Present Illness ED Provider: Dr. Ybarra HPI narrative: 35-year-old female presented hospital today for evaluation of bite injury to the right buttocks. Patient stated that she was bitten but a dog in the right buttocks. She is complaining of pain in the right buttocks area. Patient is unsure of the rabies status of the dog. Is tender to touch. Related Data Previous Rx's ?Medication ?Instructions ?Recorded benzonatate 100 mg capsule 100 mg PO BID PRN cough #14 caps 07/08/23 ibuprofen 400 mg tablet 400 mg PO Q6H PRN pain #20 tabs 08/13/24 amoxicillin 875 mg-potassium 1 tab PO Q12H 7 days #14 tabs 06/05/25 clavulanate 125 mg tablet Allergies Allergy/AdvReac Type Severity Reaction Status Date / Time No Known Allergies Allergy Verified 06/05/25 15:49 Review of Systems Review of Systems: Pertinent review of systems as mentioned in HPI. All other system otherwise negative. [facility]LY [facility], [facility] Past Medical History FOR[facility], [facility] Narrative: None Social History Social History Alcohol intake: never Substance Use Type: Marijuana Advance Directives: No Advance Directives Information Provided: No Physical Exam ED Exam Exam: General: Pleasant, no distress, interacting appropriately Head: Normacephalic, atraumatic Buttocks: Hematoma of the right gluteal cheek. Does not appear to be erythematous on exam. No signs of fluctuant mass. Skin: Warm and dry Psychiatric: Appropriate mood and thoughts Vital Signs: Vital Signs - 24 hr 06/05/25 15:45 06/05/25 17:39 06/05/25 18:18 Temperature 98.0 F 97.6 F 98.3 F Pulse Rate 79 69 75 Respiratory Rate 18 16 16 Blood Pressure 111/64 122/70 113/78 Pulse Oximetry 99 97 97 Oxygen Delivery Method Room Air Room Air Room Air 06/05/25 19:12 Temperature 98.3 F Pulse Rate 75 Respiratory Rate 16 Blood Pressure 113/78 Pulse Oximetry 97 Oxygen Delivery Method Room Air BMI result Body Mass Index 31.3 Course Course Course Narrative: This is a rapid medical exam performed by Addi Gloria SOFTWARE MANAGER: Additional HPI, ROS, PE not included below will be deferred to primary provider. Patient is a 35y/o F presenting to the ED with c/o dog bite to right buttock. States she was at her mother's house, and was arguing with her ex-brother in law, when his dog bit her. She does not believe the dog is UTD on vaccinations. Reports pain to the area and states it feels firm and is red. Area not visualized in triage due to privacy concerns. Plan: Tdap ordered Medications Administered Discontinued Medications Generic Name Dose Route Start Last Admin Trade Name Freq PRN Reason Stop Dose Admin Acetaminophen 975 mg 06/05/25 18:36 06/05/25 18:48 Acetaminophen 325 Mg Tablet PO 06/05/25 18:37 975 mg ONCE ONE Administration Amoxicillin/Clavulanate Potassium 875 mg 06/05/25 18:31 06/05/25 18:38 Amoxicillin/Potassium Clav 875 Mg Tablet PO 06/05/25 18:32 875 mg ONCE ONE Administration Diphtheria/Tetanus/Acell Pertussis 0.5 ml 06/05/25 15:47 06/05/25 17:59 Diphth,Pertus(Acell),Tet Adult 0.5 Ml Syringe IM 06/05/25 15:48 0.5 ml .ONCE ONE Administration Rabies Immune Globulin 1,452 unit 06/05/25 18:31 06/05/25 18:46 Rabies Immune Globulin/Pf 1,500 Unit/5 Ml Vial 20 unit/kg (1452 unit) 06/05/25 18:32 1,452 unit IM Administration ONCE ONE Rabies Vaccine 1 ml 06/05/25 18:31 06/05/25 18:38 Rabies Vaccine (Pcec)/Pf 1 Ml Vial IM 06/05/25 18:32 1 ml .ONCE ONE Administration Medical Decision Making Medical Decision Making MDM Narrative: 35-year-old female presented hospital today for evaluation of right buttocks pain after being bitten by a dog in her right buttocks. She is unsure of her rabies status of the dog. We will plan to give patient her initial rabies vaccine and immunoglobulin here. We will plan to set patient up for infusion clinic for follow up rabies vaccines. Tetanus shot will be updated. A dose of Augmentin will be given prophylactically to cover for the dog bite for any infection. We will plan to send the patient home with a course of Augmentin to take as well. I suspect her pain is likely secondary from the hematoma caused by the dog. Patient will be discharged Differential Diagnosis Differential Diagnoses: The differential diagnosis associated with the presentation includes Cellulitis, dog bite, hematoma of the gluteus Discharge Plan Discharge Clinical Impression: Dog bite Qualifiers: Encounter type: initial encounter Qualified Code(s): W54.0XXA - Bitten by dog, initial encounter Patient Disposition: Home, Self-Care Instructions: Animal Bite (ED) Additional Instructions: Rabies follow up with the [facility] [place] [facility]: Upon discharge from the ED today, you will be contacted by the Infusion Center to schedule your follow up Rabies vaccines. You will need a total of 3 more injections. If for some reason you do not receive a call, please call the Infusion Center directly at [phone]. Follow up with your primary care provider after completion of the vaccine to have a titer drawn to ensure the vaccines effectiveness. Prescriptions: New amoxicillin-pot clavulanate 875-125 mg tablet 1 tab PO Q12H 7 Days Qty: 14 0RF No Action benzonatate 100 mg capsule 100 mg PO BID PRN (Reason: cough) Qty: 14 0RF ibuprofen 400 mg tablet 400 mg PO Q6H PRN (Reason: pain) Qty: 20 0RF Interventions: ED Discharge Assessment Last Done: 06/05/25 19:12 Discharge Date/Time: 06/05/25 19:13 Print Language: Nepali
[2025-06-05 17:39] VITALS: BP 122/70; PULSE 69; RESP 16; TEMP 36.4; O2SAT 97
[2025-06-05] MEDS: Diphth,Pertus(ACell),Tet Adult 0.5 ML SYRINGE IM (17:59)
[2025-06-05 18:18] VITALS: BP 113/78; PULSE 75; RESP 16; TEMP 36.8; O2SAT 97
[2025-06-05] MEDS: Rabies Vaccine (PCEC)/PF 1 ML VIAL IM (18:38)
[2025-06-05 19:12] VITALS: BP 113/78; PULSE 75; RESP 16; TEMP 36.8; O2SAT 97
== END 2025-06-05 19:13 | disposition home or self-care (01) ==
PROVIDERS: Emergency Provider Student in an Organized Health Care Education/Training Program; PCP Internal Medicine
DX: S31.815A Open bite of right buttock, initial encounter (principal); M54.50 Low back pain, unspecified; W54.0XXA Bitten by dog, initial encounter; Y93.9 Activity, unspecified; Y92.9 Unspecified place or not applicable; Y99.8 Other external cause status; Z20.3 Contact with and (suspected) exposure to rabies; Z29.14 Encounter for prophylactic rabies immune globulin; Z23 Encounter for immunization
CPT/HCPCS: 90375; 90471; 90472; 90675; 90715; 96372; 99283; 99284